=== PATIENT | female | born 1980 | race Caucasian/White ===

== ENCOUNTER 2016-09-22 15:24 | Emergency (ER) | payer SELFPAY ==
[~2016-09-22] VITALS: Ht 154.9 cm; Wt 53.0 kg
[~2016-09-22 15:24] MED LIST: BACTRIM,SEPT1 TABLET PO; CELEXA20 MG PO; NOHOMEMEDS; NORCO 5/3251 TABLET PO; ZOFRAN ODT8 MG PO
[2016-09-22 16:52] LABS: MCH 28.9 PG (29.0-34.0); MCHC 33.1 G/DL (30.0-36.0); MCV 87.3 FL (83-99); PLATELET COUNT 252 K/uL (156-360); RBC DIS.WIDTH-CV 13.3 % (11.8-14.6); RBC DIS.WIDTH-SD 42.2 % (39-53); RED BLOOD COUNT 4.81 M/uL (3.80-5.20); WHITE BLOOD COUNT 7.8 K/uL (4.1-10.2)
[2016-09-22 17:02] LABS: CHLORIDE 106 mEq/L (99-109); SODIUM 140 mEq/L (136-147)
[2016-09-22 17:04] LABS: GLUCOSE 102 mg/dL (70-99)
[2016-09-22 17:05] LABS: ANION GAP 9 MEQ/L (2-14)
[2016-09-22 17:08] LABS: GFR ESTIMATE (CALCULATED) > 59 mL/min/
[2016-09-22 17:09] LABS: UREA NITROGEN (BUN) 12 mg/dL (9-23)
[2016-09-22 18:21] VITALS: BP 107/56
== END 2016-09-22 18:22 | disposition home or self-care (01) ==
LOC: EME 15:24
DX: R06.02 Shortness of breath (principal); F17.200 Nicotine dependence, unspecified, uncomplicated
CPT/HCPCS: 71020; 80048; 85027; 93005; 99281; 99283

== ENCOUNTER 2017-05-26 11:16 | Emergency (ER) | payer SELFPAY ==
[~2017-05-26] VITALS: Ht 154.9 cm; Wt 53.5 kg
[2017-05-26 11:45] LABS: ADD MIUA? YES; BILIRUBIN NEGATIVE; BLOOD NEGATIVE; COLOR YELLOW ((YELLOW)); GLUCOSE (STRIP) NEGATIVE; KETONES NEGATIVE; LEUKOCYTES NEGATIVE; NITRITE NEGATIVE; PROTEIN (STRIP) 30; SPECIFIC GRAVITY 1.023 (1.000-1.030); UROBILINOGEN 0.2 MG/DL (0.2-1.0)
[2017-05-26 11:51] LABS: BACTERIA RARE /HPF; EPITHELIAL CELLS 1+ /HPF; MUCUS 1+ /LPF; RED BLOOD CELLS 0-5 /HPF (0-5); UCUL ADDED? NO; WHITE BLOOD CELLS 0-5 /HPF (0-5)
[2017-05-26 11:52] LABS: HEMATOCRIT 42.3 % (36.0-46.0); MCH 28.6 PG (29.0-34.0); MCHC 32.6 G/DL (30.0-36.0); MCV 87.6 FL (83-99); MEAN PLAT.VOLUME 10.1 uM^3 (9.5-12.4); PLATELET COUNT 215 K/uL (156-360); RBC DIS.WIDTH-CV 12.8 % (11.8-14.6); RBC DIS.WIDTH-SD 41.3 % (39-53); RED BLOOD COUNT 4.83 M/uL (3.80-5.20); WHITE BLOOD COUNT 7.5 K/uL (4.1-10.2)
[2017-05-26 12:07] LABS: CHLORIDE 105 mEq/L (99-109); POTASSIUM 3.9 mEq/L (3.7-5.4); SODIUM 139 mEq/L (136-147)
[2017-05-26 12:09] LABS: GLUCOSE 109 mg/dL (70-99)
[2017-05-26 12:10] LABS: ANION GAP 12 MEQ/L (2-14)
[2017-05-26 12:11] LABS: TOTAL BILIRUBIN 0.4 mg/dL (0.0-1.0)
[2017-05-26 12:12] LABS: ALKALINE PHOSPHATASE 44 IU/L (3-129)
[2017-05-26 12:13] LABS: GFR ESTIMATE (CALCULATED) > 59 mL/min/
[2017-05-26 12:14] LABS: UREA NITROGEN (BUN) 12 mg/dL (9-23)
[2017-05-26 12:23] LABS: QUANTITATIVE HCG < 4.0 MIU/ML
[2017-05-26 14:46] VITALS: BP 121/71
== END 2017-05-26 14:47 | disposition home or self-care (01) ==
LOC: EME 11:16
DX: N83.202 Unspecified ovarian cyst, left side (principal); R32 Unspecified urinary incontinence; Z90.710 Acquired absence of both cervix and uterus; F17.200 Nicotine dependence, unspecified, uncomplicated
CPT/HCPCS: 76856; 80053; 81003; 84702; 85027; 99281; 99284

== ENCOUNTER 2017-10-20 22:45 | Emergency (ER) | payer OTHER ==
[~2017-10-20] VITALS: Ht 165.1 cm; Wt 65.3 kg
[2017-10-20 23:12] LABS: HEMATOCRIT 43.8 % (36.0-46.0); HEMOGLOBIN 15.1 G/DL (11.9-15.5); MCH 32.4 PG (29.0-34.0); MCHC 34.5 G/DL (30.0-36.0); PLATELET COUNT 314 K/uL (156-360); RBC DIS.WIDTH-CV 12.6 % (11.8-14.6); RBC DIS.WIDTH-SD 43.8 % (39-53); RED BLOOD COUNT 4.66 M/uL (3.80-5.20); WHITE BLOOD COUNT 12.8 K/uL (4.1-10.2)
[2017-10-20 23:41] LABS: ALBUMIN 4.1 G/DL (3.2-4.8); ALKALINE PHOSPHATASE 72 IU/L (3-129); ALT (GPT) 30 IU/L (3-49); AST (GOT) 29 IU/L (2-34); CHLORIDE 106 MEQ/L (99-109); CREATININE 0.6 MG/DL (0.6-1.3); GFR ESTIMATE (CALCULATED) > 59 mL/min/; GLUCOSE 111 mg/dL (70-99); LIPASE 38 U/L (1.0-51.0); POTASSIUM 3.6 MEQ/L (3.7-5.4); SERUM ETHYL ALCOHOL 442 mg/dL; SODIUM 139 MEQ/L (136-147); TOTAL BILIRUBIN 0.3 MG/DL (0.0-1.0); TOTAL PROTEIN 7.1 G/DL (6.4-8.3); UREA NITROGEN (BUN) 6 mg/dL (9-23)
[2017-10-21 07:44] VITALS: BP 100/77
[2017-10-21 08:00] LABS: AMPHETAMINE NEGATIVE (500 ng/mL); BARBITURATES NEGATIVE (200 ng/mL); BENZODIAZEPINES NEGATIVE (150 ng/mL); BUPRENORPHINE NEGATIVE (10 ng/mL); COCAINE PRESUMPTIVE POSITIVE (150 ng/mL); METHADONE NEGATIVE (200 ng/mL); METHAMPHETAMINE NEGATIVE (500 ng/mL); OPIATES (MORPHINE) NEGATIVE (100 ng/mL); OXYCODONE NEGATIVE (100 ng/mL); PHENCYCLIDINE NEGATIVE (25 ng/mL); PROPOXYPHENE NEGATIVE (300 ng/mL); THC CANNABINOIDS NEGATIVE (50 ng/mL); TRICYCLIC ANTIDEPRESSANTS NEGATIVE (300 ng/mL)
== END 2017-10-21 07:46 | disposition home or self-care (01) ==
LOC: EDBD 22:45 → EME 22:45
PROVIDERS: Emergency Medicine
DX: F10.121 Alcohol abuse with intoxication delirium (principal); Y90.8 Blood alcohol level of 240 mg/100 ml or more
CPT/HCPCS: 80053; 83690; 84999; 85027; 93005; 99281; 99285; G0480; J7030

== ENCOUNTER 2017-12-23 21:03 | Emergency (ER) | payer OTHER ==
[~2017-12-23] VITALS: Ht 154.9 cm; Wt 55.0 kg
[2017-12-23 22:08] LABS: HEMATOCRIT 38.7 % (36.0-46.0); MCH 29.8 PG (29.0-34.0); MCHC 33.6 G/DL (30.0-36.0); MCV 88.8 FL (83-99); PLATELET COUNT 218 K/uL (156-360); RBC DIS.WIDTH-CV 12.9 % (11.8-14.6); RBC DIS.WIDTH-SD 42.2 % (39-53); RED BLOOD COUNT 4.36 M/uL (3.80-5.20); WHITE BLOOD COUNT 8.8 K/uL (4.1-10.2)
[2017-12-23 22:19] LABS: ALBUMIN 4.2 g/dL (3.2-4.8); CHLORIDE 106 mEq/L (99-109); POTASSIUM 3.8 mEq/L (3.7-5.4); SODIUM 139 mEq/L (136-147)
[2017-12-23 22:21] LABS: GLUCOSE 90 mg/dL (70-99); TOTAL PROTEIN 6.9 g/dL (6.4-8.3)
[2017-12-23 22:23] LABS: TOTAL BILIRUBIN 0.3 mg/dL (0.0-1.0)
[2017-12-23 22:25] LABS: ALKALINE PHOSPHATASE 48 IU/L (3-129); CREATININE 0.8 mg/dL (0.6-1.3); GFR ESTIMATE (CALCULATED) > 59 mL/min/
[2017-12-23 22:26] LABS: UREA NITROGEN (BUN) 13 mg/dL (9-23)
[2017-12-23 22:27] LABS: AST (GOT) 24 IU/L (2-34)
[2017-12-23 22:28] LABS: ALT (GPT) 39 IU/L (3-49)
[2017-12-23 22:38] LABS: QUANTITATIVE HCG < 4.0 MIU/ML
[2017-12-23 23:11] LABS: APPEARANCE SL.HAZY ((CLEAR)); BILIRUBIN NEGATIVE; BLOOD NEGATIVE; COLOR YELLOW ((YELLOW)); GLUCOSE (STRIP) NEGATIVE; KETONES NEGATIVE; LEUKOCYTES NEGATIVE; NITRITE NEGATIVE; PROTEIN (STRIP) NEGATIVE; SPECIFIC GRAVITY 1.024 (1.000-1.030); UROBILINOGEN 0.2 MG/DL (0.2-1.0)
[2017-12-23 23:13] LABS: BACTERIA RARE /HPF; EPITHELIAL CELLS RARE /HPF; MUCUS 2+ /LPF; RED BLOOD CELLS 0-5 /HPF (0-5); UCUL ADDED? NO; WHITE BLOOD CELLS 0-5 /HPF (0-5)
[2017-12-24] MEDS ORDERED: ZOFRAN ODT4 MG PO (01:06)
[2017-12-24] MEDS ORDERED: PERCOCET 5/31 TABLET PO (01:06)
[2017-12-24 01:50] VITALS: BP 89/66
== END 2017-12-24 01:58 | disposition home or self-care (01) ==
LOC: EME 21:03
DX: N83.202 Unspecified ovarian cyst, left side (principal); Z90.710 Acquired absence of both cervix and uterus
CPT/HCPCS: 74177; 80053; 81003; 84702; 85027; 99281; 99284; J2405; J3010; J7030